=== PATIENT | female | born 1990 | race Caucasian/White ===

== ENCOUNTER 2024-01-07 17:21 | Observation (INO) | payer OTHER, SELFPAY ==
[2024-01-07 18:19] VITALS: BMI 32.3
[2024-01-07 18:28] LABS: Appearance Urine Clear (Clear); Bilirubin Urine Negative (Negative); Blood Urine Negative (Negative); Color Urine Yellow (Yellow); Glucose Urine UA Negative (Negative); Ketones Urine 1+ mg/dL (Negative); Leukocyte Esterase Ur Negative LEU/UL (Negative); Nitrate Urine Negative (Negative); Protein Urine Negative (Negative); Specific Grav Ur 1.016 (1.001-1.035); Urobilinogen Urine 0.2 mg/dL (<2.0); pH Urine 6.5 (5.0-9.0)
[2024-01-07 18:33] LABS: Add Urine Microscopic? NO
--- NOTE | 2024-01-07 18:51 | PC.NURSE ---
1851- RN called MD and updated her on pts UA results as well as FHT and UC tracing. Orders received for discharge.
--- NOTE | 2024-01-10 12:25 | P.PNOB_ITS ---
OB - Triage/Final Diagnosis Visit Information Comments/Additional reasons for admission: I have assessed the risk for this patient, Kristie Hays, and determined that she would benefit from observation care. Evaluation Laboratory results: Laboratory Tests 01/07/24 18:22 Urine Color Yellow Urine Appearance Clear Urine pH 6.5 Ur Specific [place] 1.016 Urine Protein Negative Urine Glucose (UA) Negative Urine Ketones 1+ H Ur Blood (Man) Negative Urine Nitrate Negative Urine Bilirubin Negative Urine Urobilinogen 0.2 Leukocyte Esterase Rfl Negative Final Diagnosis (1) Back pain affecting : Code(s): O99.891 - Other specified diseases and conditions complicating ; M54.9 - Dorsalgia, unspecified Status: Acute
== END 2024-01-07 19:01 | disposition home or self-care (01) ==
PROVIDERS: Admitting Provider Obstetrics & Gynecology; PCP Family Medicine; Visit Provider Obstetrics & Gynecology
DX: O99.891 Other specified diseases and conditions complicating pregnancy (principal); M54.9 Dorsalgia, unspecified; Z3A.38 38 weeks gestation of pregnancy
CPT/HCPCS: 81003; G0378; G0379

== ENCOUNTER 2024-01-17 16:50 | Inpatient (IN) | payer OTHER, SELFPAY ==
[2024-01-17] VITALS (15 sets, daily range): BP systolic 104–146; BP diastolic 51–85; PULSE 65–109; TEMP 36.4; BMI 32.1
--- NOTE | 2024-01-17 17:04 | P.PNAN_ITS ---
Anes - Eval Pre Procedure Procedure: Labor epidural Date/Time: 01/17/24 17:04 Surgeon: Bassem Preop Diagnosis: Abdominal pain with contractions Pre Op Diagnosis: Induction of Labor Patient Data Age: 33 Gender: F Height: Weight: Allergies Allergy/AdvReac Type Severity Reaction Status Date / Time No Known Allergies Allergy Verified 12/25/23 13:33 Home Medications Medication Instructions Recorded Confirmed Type aspirin 81 mg tablet 81 mg PO DAILY 12/25/23 12/25/23 History prenat.vits,barbra,[id number] 1 tablet 12/25/23 12/25/23 History valacyclovir 500 mg tablet 500 mg PO DAILY 12/25/23 12/25/23 History : gestational age HCG: positive Patient hx anesthesia problems: none Family hx anesthesia problems: none Results Review: All pre-operative results and documents have been reviewed as part of the pre- operative evaluation. [facility], [facility] Past Medical History Medical History (Updated 01/17/24 @ 17:06 by Ja Loo Jr., CRNA) Anxiety HSV infection and not yet delivered Family History Family History Other Patient denies significant medical history Social History Social History Substance use: never Spiritual care concerns: No Exam Day of Procedure 01/17/24 17:04
[2024-01-17 17:32] LABS: Basophils Percent Auto 0.2 % (0.2-1.2); Eosinophils Percent Auto 0.2 % (0-4.4); Hematocrit 33.3 % (37.0-47.0); Hemoglobin 11.5 g/dL (12.0-15.0); Immature Granulocyte Absolute 0.14 K/mm3 (0.00-0.031); Immature Granulocyte Percent A 1.1 % (0-0.5); Lymphocytes Absolute Auto 1.68 K/mm3 (0.9-3.2); Lymphocytes Percent Auto 13.3 % (18.3-44.2); Mean Corpuscular HGB Conc 34.5 g/dl (32-36); Mean Corpuscular Hemoglobin 30.7 pg (26-34); Mean Platelet Volume 10.2 fl (7.4-10.4); Monocytes Absolute Auto 0.7 K/mm3 (0.1-0.6); Monocytes Percent Auto 5.3 % (2.6-8.5); Neutrophils Absolute Auto 10.1 K/mm3 (1.3-6.7); Neutrophils Percent Auto 79.9 % (45.5-73.1); Platelet Count Result 200 k/mm3 (150-375); Red Blood Count 3.74 M/mm3 (4.2-5.4); Red Cell Distribution Width 14.6 % (11.5-14.5); White Blood Count 12.7 K/mm3 (4.5-10.0)
--- NOTE | 2024-01-17 17:34 | LDADM ---
This patient, Kristie Hays, was admitted to Labor/Delivery/Recovery 109 on 01/17/24 at 16:50. Plans for labor, pain management and were discussed with patient. Patient/family oriented to hospital policies and general routines including ID bracelet, bed and alarms, visiting hours, pain management, procedures, bathroom and other care routines, personal items, smoking policy, room service/diet and guest tray routines, security routines, and visiting hours. Patient/Family are encouraged to report perceived risks to care and to ask questions if they do not understand what they are told or what they should do. See OBIX for further documentation.
[2024-01-17] MEDS: miSOPROStol 25 MCG TABLET 50 MCG BUCCAL ×2 (18:10→22:15)
[2024-01-17 18:23] LABS: HIV 1/2 Ab P24 Ag Result Negative (Negative)
[2024-01-18] VITALS (178 sets, daily range): BP systolic 84–147; BP diastolic 45–109; PULSE 56–173; RESP 18; TEMP 36.2–37.7; O2SAT 85–100
[2024-01-18] MEDS: miSOPROStol 25 MCG TABLET 50 MCG BUCCAL (02:27)
[2024-01-18] MEDS: fentaNYL CITRATE INJ (*CRX) 100 MCG/2 ML VIAL 50 MCG IV PUSH ×2 (03:05→04:17)
[2024-01-18] MEDS: LACTATED RINGERS 1,000 ML 125 ML IV CONT (04:12)
[2024-01-18 08:40] LABS: Rapid Plasma Reagin Non-Reactive (NonReactive)
[2024-01-18] MEDS: ONDANSETRON INJ 4 MG/2 ML VIAL IV PUSH (08:42)
[2024-01-18] MEDS: OXYTOCIN 30 UNITS/NS 500 ML 30 UNITS/500 ML BAG IV CONT (10:06)
[2024-01-18] MEDS: OXYTOCIN 30 UNITS/NS 500 ML 30 UNITS/500 ML BAG 125 UNITS IV CONT (14:58)
[2024-01-18] MEDS: IBUPROFEN 600 MG TABLET PO ×2 (15:58→21:08)
[2024-01-18] MEDS: WITCH HAZEL 40 PADS 1 PAD TOPICAL (15:58)
[2024-01-18] MEDS: BENZOCAINE 20% AER SPR (*SP) 56 GM CAN 1 SPRAY TOPICAL (15:58)
--- NOTE | 2024-01-18 16:58 | OBPPTRN ---
Patient transferred to post room #287 via wheelchair. Support person present. Oriented to unit, room, information board, rooming in, admission packet and security measures. Patient verbalizes understanding.
--- NOTE | 2024-01-18 17:47 | PM.IMHP ---
H&P: HPI History of Present Illness Date/Time: 01/18/24 08:15 Chief Complaint: elective induction of labor Narrative: Patient is a 33 year old who presents for elective induction of labor. has been complicated by hx of HSV on valtrex suppression and no outbreak symptoms, AMA, and COVID-19. She denies strong contractions prior to start of induction, no leakage of fluid or vaginal bleeding. Good movement. Induction started with cytotec, patient tolerated well. Review of Systems Review of Systems: All systems reviewed & are unremarkable except as noted in HPI and below PMFSH Past Medical History Medical History Anxiety HSV infection and not yet delivered Family History Family History Other Patient denies significant medical history Social History Social History Smoking status: Former smoker Tobacco type: cigarettes Second hand tobacco smoke exposure: No Substance use: never Do You Feel Safe in your Home?: Yes Lack of Transportation: No Lack of Food: Never True Current Housing: I Have Housing Concerned About Future Housing: No Difficulty Paying Gas/Electric Bills: No Difficulty Paying for Meds: No Currently Unemployed: No Education: Bachelor's Degree Difficulty w/ Childcare or Family Care: No Spiritual care concerns: No Meds Home Medications and Allergies Home Medications Medication Instructions Recorded Confirmed Type aspirin 81 mg tablet 81 mg PO DAILY 12/25/23 12/25/23 History prenat.vits,barbra,[id number] 1 tablet 12/25/23 12/25/23 History valacyclovir 500 mg tablet 500 mg PO DAILY 12/25/23 12/25/23 History acetaminophen 325 mg tablet 650 mg PO Q4-6H PRN Back Pain 01/17/24 01/17/24 History (Tylenol) omeprazole 40 mg capsule,delayed 40 mg PO DAILY 01/17/24 01/17/24 History release Allergies Allergy/AdvReac Type Severity Reaction Status Date / Time No Known Allergies Allergy Verified 12/25/23 13:33 Vital Signs Vital Signs - 24 hr 01/17/24 18:00 01/17/24 18:15 01/17/24 18:31 Temperature Pulse Rate 89 98 109 H Blood Pressure 140/76 127/75 146/56 H Pulse Oximetry 01/17/24 19:31 01/17/24 20:00 01/17/24 20:31 Temperature 97.6 F Pulse Rate 75 85 79 Blood Pressure 120/77 125/84 137/84 Pulse Oximetry 01/17/24 21:01 01/17/24 21:31 01/17/24 22:01 Temperature Pulse Rate 88 99 75 Blood Pressure 113/76 121/73 121/85 Pulse Oximetry 01/17/24 22:30 01/17/24 23:01 01/17/24 23:30 Temperature Pulse Rate 85 67 65 Blood Pressure 126/82 104/51 L 110/65 Pulse Oximetry 01/18/24 00:00 01/18/24 00:30 01/18/24 01:00 Temperature 98 F Pulse Rate 80 73 60 Blood Pressure 109/76 107/69 124/71 Pulse Oximetry 01/18/24 01:31 01/18/24 02:01 01/18/24 02:31 Temperature Pulse Rate 56 L 79 81 Blood Pressure 117/77 131/72 121/88 Pulse Oximetry 01/18/24 03:01 01/18/24 03:04 01/18/24 03:09 Temperature Pulse Rate 61 Blood Pressure 108/61 Pulse Oximetry 98 97 01/18/24 03:14 01/18/24 03:19 01/18/24 03:24 Temperature Pulse Rate Blood Pressure Pulse Oximetry 93 94 94 01/18/24 03:29 01/18/24 03:31 01/18/24 03:34 Temperature Pulse Rate 69 Blood Pressure 99/60 L Pulse Oximetry 92 93 01/18/24 03:39 01/18/24 03:44 01/18/24 03:49 Temperature Pulse Rate Blood Pressure Pulse Oximetry 93 91 96 01/18/24 03:54 01/18/24 03:59 01/18/24 04:00 Temperature 98.1 F Pulse Rate 81 Blood Pressure 122/77 Pulse Oximetry 95 98 01/18/24 04:55 01/18/24 04:57 01/18/24 04:58 Temperature Pulse Rate 91 97 Blood Pressure 140/82 135/92 H Pulse Oximetry 98 01/18/24 05:00 01/18/24 05:03 01/18/24 05:05 Temperature Pulse Rate 94 101 H Blood Pressure 143/86 H 147/89 H Pu
--- NOTE | 2024-01-18 17:51 | PM.OBPRVD ---
OB - Vaginal Delivery Note Procedure Delivery date: 01/18/24 Events: Elective Induction of Labor Induction method: Per Misoprostol Protocol Delivery augmentation: Rupture of Membranes and Pitocin Delivery monitor: External FHT and External Uterine Route of delivery: Episiotomy description: None Laceration Description: Perineal - 2nd Degree Delivery repair: vicryl Specimen: No Quantitative Blood Loss (ml): 100 Anesthesia type: Epidural Disposition: Floor Complications: No immediate complications Narrative: See H&P and notes for details on patient's admission and labor. She progressed to complete cervical dilation and at the appropriate time began pushing. With adequate expulsive efforts by the mother, the baby's head was delivered without difficulty. Nuchal cord was present x1 and was easily reduced. The baby's right shoulder was anterior and delivered under the pubic symphysis without difficulty. The posterior shoulder and the rest of the baby delivered without difficulty. The umbilical cord was doubly clamped and cut after 60 seconds of delayed cord clamping. Care of the infant was then assumed by the nursing staff. Baby Date of : 01/18/24 Weeks of gestation at delivery: 40 gender: Male Weight (pounds): 7 Weight (ounces): 15 presentation: vertex position: Left Occiput Anterior Placenta delivery description: Expressed Cord Vessel Description: 3 Vessels, Nuchal Cord, Reduced and Delayed Cord Clamping
[2024-01-19] MEDS: IBUPROFEN 600 MG TABLET PO ×3 (03:47→18:41)
[2024-01-19 04:00] VITALS: BP 115/87; PULSE 84; RESP 16; TEMP 36.4; O2SAT 98
[2024-01-19 05:18] LABS: Hematocrit 32.2 % (37.0-47.0); Hemoglobin 10.1 g/dL (12.0-15.0)
[2024-01-19 08:00] VITALS: PULSE 82; RESP 16; O2SAT 99
[2024-01-19 08:30] VITALS: BP 110/79; PULSE 82; RESP 18; TEMP 36.8; O2SAT 99
[2024-01-19] MEDS: MULTIVIT/MIN/PREN/FOL AC/IRON TABLET 1 TAB PO (10:04)
[2024-01-19] MEDS: DOCUSATE SODIUM 100 MG CAPSULE PO (10:04)
[2024-01-19 12:24] VITALS: BP 118/74; PULSE 89; RESP 16; TEMP 36.6; O2SAT 98
--- NOTE | 2024-01-19 12:54 | PM.OBPNVD ---
OB - PN: Subj Subjective Date/time seen: 01/19/24 12:54 Interval history: PPD#1 Doing well, some soreness but improved with tylenol/ibuprofen , latching going well Voiding without issue OB - PN: Obj Data Labs 01/19/24 03:49 Labs: Laboratory Results - last 24 hr 01/19/24 03:49 Hgb 10.1 L Hct 32.2 L OB - PN A/P Assessment and Plan (1) (spontaneous vaginal delivery): Code(s): O80 - Encounter for full-term uncomplicated delivery Status: Acute Plan day: 1 Plan: routine care Time Spent With Patient Time: Total time spent is greater than 50% in coordination of care (as documented) at patient's floor/unit and/or counseling patient: Review of Systems Review of Systems: All systems reviewed & are unremarkable except as noted in HPI and below Exam Const: General: comfortable and no acute distress Resp: Effort & Inspection: normal respiratory effort
--- NOTE | 2024-01-19 14:27 | WPDANLDPN2 ---
Anes-Prog Note L&D Date/Time: 01/19/24 14:27 Comfortable throughout: labor and delivery Neuraxial method: epidural Epidural/Spinal procedure site: clean & non-tender Neuro status: Neuro function grossly intact. Cardiovascular status: normal Respiratory status: normal Airway patency: baseline Mental status: baseline Post-Op hydration status: normal Vital Signs: Last Vital Signs Temp 36.6 C 01/19/24 12:24 Pulse 89 01/19/24 12:24 Resp 16 01/19/24 12:24 BP 118/74 01/19/24 12:24 Pulse Ox 98 01/19/24 12:24 O2 Del Method Room Air 01/18/24 17:20 Pain score (VAS): 07/14 Post-procedural complaints: none Patient feedback: Patient satisfied with anesthetic care.
--- NOTE | 2024-01-19 16:10 | PC.NURSE ---
Consulted with patient to assess needs related to . Discussed with mother her successes, concerns and any questions she has. We reviewed working with the , protecting her nipples with an optimal deep latch, and good hand washing. Encouraged understanding the benefits of skin to skin, responding to feeding cues, frequencies of feeding 8-12 times in 24 hours (approximately 2-3 hours), duration of feedings, milk production. Infant latched optimally to the [right] breast in [cradle] position. The was [able] to maintain latch without discomfort to mother. Nipple care reviewed with optimal latch, lanolin, breastmilk and air drying and using clean hands when touching her breast. Mother voiced understanding of the education shared, to call for assistance if the infant does not latch or if there is discomfort with . Reported to the Primary RN.
[2024-01-19 20:13] VITALS: BP 112/69; PULSE 94; RESP 18; TEMP 36.1; O2SAT 96
[2024-01-20 08:00] VITALS: PULSE 82; RESP 18; O2SAT 95
[2024-01-20 08:15] VITALS: BP 106/69; PULSE 82; RESP 18; TEMP 37.2; O2SAT 95
--- NOTE | 2024-01-20 08:53 | PM.OBPNVD ---
OB - PN: Subj Subjective Date/time seen: 01/20/24 08:53 Interval history: PPD#1 Doing well, some soreness but improved with tylenol/ibuprofen , latching going well Voiding without issue Patient comments: no complaints, pain well controlled and tolerating diet OB - PN: Obj Data Labs 01/19/24 03:49 OB - PN A/P Plan day: 2 Plan: routine care and discharge home Time Spent With Patient Time: Total time spent is greater than 50% in coordination of care (as documented) at patient's floor/unit and/or counseling patient: Exam Const: General: comfortable and no acute distress Resp: Effort & Inspection: normal respiratory effort Auscultation: no rales, no rhonchi and no wheezes Cardio: Rate: regular rate Heart sounds: no click, no murmurs and no rubs GI: GI Palp: Yes Soft to palpation and No Tenderness to palpation present (GI) Auscultation: normal bowel sounds Extrem: General: normal to inspection, no pedal edema and no calf tenderness
--- NOTE | 2024-01-20 09:06 | PM.OBDSVD ---
DS: Admitting Diagnosis Discharge Date 01/20/2024 Admitting Diagnosis term DS: Discharge Diagnosis Discharge Diagnosis (1) Post term , delivered: Code(s): O48.0 - Post-term Status: Acute OB - DS: Summary OB Procedures : None OB Procedures Intrapartum: Spontaneous Vag Delivery OB Procedures: : None Peripartum Data Laceration Description: Perineal - 2nd Degree Episiotomy description: None Time Spent with Patient Time attestation: Total time spent providing and/or coordinating discharge services: Discharge Plan Discharge Discharging Clinician: Benigno Diana Patient Disposition: Home, Self-Care Activity: pelvic rest Diet: regular Patient Instructions: Antibiotic Form Stand Alone Forms: General Discharge Information Follow-up/Referrals: Benigno Diana MD [Physician] - Discharge Medications: Continued valacyclovir 500 mg Tablet 500 mg PO DAILY prenat.vits,barbra,[id number] Tablet 1 tablet omeprazole 40 mg capsule,delayed release(DR/EC) 40 mg PO DAILY acetaminophen [Tylenol] 325 mg Tablet 650 mg PO Q4-6H PRN (Reason: Back Pain) Discontinued aspirin 81 mg Tablet 81 mg PO DAILY Date of admission: 01/17/24 16:50 Primary Care Provider: Wilbur,Marcie Admitting Provider: Gordon Luevano Attending physician on admission: Gordon Luevano Condition: Stable
[2024-01-20] MEDS: DOCUSATE SODIUM 100 MG CAPSULE PO (09:12)
[2024-01-20] MEDS: MULTIVIT/MIN/PREN/FOL AC/IRON TABLET 1 TAB PO (09:12)
[2024-01-20] MEDS: IBUPROFEN 600 MG TABLET PO (09:14)
--- NOTE | 2024-01-20 10:42 | PC.NURSE ---
Patient viewed the discharge video Mother & Baby Care, The First Two Weeks . Patient was given the opportunity and encouraged to ask questions. Patient verbalized understanding of information shared and has been given the mother/baby guide for home reference.
[2024-01-22 12:08] VITALS: BP 115/78; PULSE 81; RESP 18; TEMP 36.7; O2SAT 97
== END 2024-01-20 14:06 | disposition home or self-care (01) | DRG 806 ==
LOC: ANHLDR 16:55 → ANHOB2 01-18 17:42
PROVIDERS: Admitting Provider Obstetrics & Gynecology; PCP Family Medicine; Visit Provider Obstetrics & Gynecology
DX: O77.0 Labor and delivery complicated by meconium in amniotic fluid (principal); O98.32 Other infections with a predominantly sexual mode of transmission complicating childbirth; Z37.0 Single live birth; O48.0 Post-term pregnancy; Z3A.40 40 weeks gestation of pregnancy; O70.1 Second degree perineal laceration during delivery; O69.81X0 Labor and delivery complicated by cord around neck, without compression, not applicable or unspecified; A60.09 Herpesviral infection of other urogenital tract; O36.8330 Maternal care for abnormalities of the fetal heart rate or rhythm, third trimester, not applicable or unspecified
CPT/HCPCS: 36415; 85014; 85018; 85025; 86592; 86703; 86850; 86900; 86901; A9270; G0432; J2405; J2590; J2795; J3010; J7120